=== PATIENT | male | born 1960 | race Caucasian/White ===

== ENCOUNTER 2019-03-20 09:19 | Outpatient (CLI) | payer OTHER ==
--- NOTE | 2019-03-20 10:13 | RAD ---
PA AND LATERAL CHEST: Date: 03/20/19 HISTORY: Dyspnea. COMPARISON: 03/11/19 study. FINDINGS: Heart size and mediastinum are within normal limits. Lungs are clear of infiltrates. No significant b josué findings. IMPRESSION: No active intrathoracic disease. POS: [facility]
== END 2019-03-20 09:20 | disposition home or self-care (01) ==
LOC: RAD 09:19
PROVIDERS: ATTEND Internal Medicine Critical Care Medicine
DX: R06.00 Dyspnea, unspecified (principal)
CPT/HCPCS: 71046

== ENCOUNTER 2019-04-02 09:06 | Outpatient (CLI) | payer OTHER ==
--- NOTE | 2019-04-02 11:28 | CT ---
CT THORAX NONCONTRAST: (LOW DOSE LUNG CANCER SCREENING CT) DATE: 04/02/19 HISTORY: 58-year-old male with history of smoking for 40 years. Currently still smoking. FINDINGS: No suspicious pulmonary nodule is identified. Trachea and bronchi are patent and clear. A few tiny bl ebs are visualized at the lung apices. No large bullae, and no high grade emphysematous changes of th e lungs. No pleural effusion, cardiomegaly, pneumothorax, pericardial effusion, mediastinal lymphaden opathy, or thoracic aortic aneurysm. No destructive osseous lesion. IMPRESSION: 1. Lung-RADS Category 1 - Negative (less than 1% change of malignancy). 2. Recommend continued annual screening low dose CT. VEL [place] POS: [facility]
== END 2019-04-02 09:07 | disposition home or self-care (01) ==
LOC: CT 09:06
PROVIDERS: ATTEND Internal Medicine Critical Care Medicine
DX: Z87.891 Personal history of nicotine dependence (principal)
CPT/HCPCS: G0297

== ENCOUNTER 2019-05-13 07:51 | Outpatient (CLI) | payer OTHER ==
--- NOTE | 2019-05-13 10:58 | MRI ---
CERVICAL SPINE MRI WITHOUT IV CONTRAST: Date: 05/13/19 HISTORY: Cervical radiculopathy, chronic neck pain, numbness and tingling in left shoulder and jaw. FINDINGS: Multiplanar, multisequence MRI examination of the cervical spine is performed. Multilevel disc osteop hytosis and facet arthrosis changes. Visualized lower brain is unremarkable. Visualized soft tissue n sukumar unremarkable. No significant abnormal marrow signal. No significant abnormal spinal cord mass or spinal cord signal. C2-C3: Very mild disc osteophytosis without canal or foraminal stenosis. C3-C4: Central disc osteophyte with ventral thecal sac compression and possibly very slight indentio n of the ventral cord. Moderate bilateral foraminal stenosis. C4-C5: Some thickening of the posterior longitudinal ligament with mild left lateral recess narrowin g and moderate bilateral foraminal stenosis. C5-C6: Mild diffuse disc osteophytosis and posterior longitudinal ligament thickening with slight th inning of the lateral recesses and moderate bilateral foraminal stenosis. C6-C7: Prominent disc osteophytosis with moderate central canal and lateral recess stenosis, and breann ateral foraminal stenosis. C7-T1: No significant canal or lateral recess or foraminal stenosis. IMPRESSION: Extensive disc osteophytosis and facet arthrosis with multilevel variable severity canal, lateral rec ess, and foraminal stenosis as above. No significant abnormal marrow signal. No significant spinal co rd mass or spinal cord compression. POS: [facility]
== END 2019-05-13 07:52 | disposition home or self-care (01) ==
LOC: TBSIIMAG 07:51
PROVIDERS: ATTEND Neurological Surgery
DX: M47.22 Other spondylosis with radiculopathy, cervical region (principal); M25.78 Osteophyte, vertebrae; M48.02 Spinal stenosis, cervical region
CPT/HCPCS: 72141

== ENCOUNTER 2022-04-04 15:18 | Outpatient (CLI) | payer BC | END 2022-04-04 15:19 | disposition home or self-care (01) | LOC: BICCT 15:18 | PROVIDERS: ATTEND Registered Nurse | DX: Z12.2 Encounter for screening for malignant neoplasm of respiratory organs (principal); F17.210 Nicotine dependence, cigarettes, uncomplicated | CPT/HCPCS: 71271 ==

== ENCOUNTER 2023-04-04 10:34 | Outpatient (CLI) | payer BC | END 2023-04-04 10:35 | disposition home or self-care (01) | LOC: BICCT 10:34 | PROVIDERS: ATTEND Registered Nurse | DX: Z12.2 Encounter for screening for malignant neoplasm of respiratory organs (principal); F17.210 Nicotine dependence, cigarettes, uncomplicated | CPT/HCPCS: 71271 ==

== ENCOUNTER 2024-04-09 14:11 | Outpatient (CLI) | payer BC | END 2024-04-09 14:12 | disposition home or self-care (01) | LOC: BICCT 14:11 | PROVIDERS: ATTEND Registered Nurse | DX: Z12.2 Encounter for screening for malignant neoplasm of respiratory organs (principal); F17.210 Nicotine dependence, cigarettes, uncomplicated; Z80.1 Family history of malignant neoplasm of trachea, bronchus and lung | CPT/HCPCS: 71271 ==